=== PATIENT | female | born 1950 | race Caucasian/White ===

== ENCOUNTER 2018-08-17 13:05 | Emergency (ER) | payer OTHER ==
[~2018-08-17] VITALS: Ht 167.6 cm; Wt 80.7 kg
[~2018-08-17 13:05] MED LIST: ACETAMINOPHEN-1 EAC1 PO; ASPIRIN325; CARDIZEM60 MG PO; CLEOCIN HCL150 MG PO; COZAAR 50 MG TA50 M2; GLUCOPHAGE500 MG PO; METOPROLOL PO; MOBIC15 MG; SERTRALINE HCL100 MG PO; ZOCOR40 MG PO
[2018-08-17] MEDS ORDERED: FOLIC ACID1 MG PO (13:37)
[2018-08-17 13:38] LABS: ABSOLUTE BASOPHILS 0.1 thou/uL (0.0-0.2); ABSOLUTE EOSINOPHILS 0.3 thou/uL (0.0-0.7); ABSOLUTE LYMPHOCYTES 2.4 thou/uL (0.8-5.3); ABSOLUTE MONOCYTES 1.1 thou/uL (0.0-1.2); ABSOLUTE NEUTROPHILS 4.3 thou/uL (1.6-8.1); BASOPHILS 1.2 %; EOSINOPHILS 3.3 %; HEMATOCRIT 38.5 % (37.0-47.0); HEMOGLOBIN 12.7 gm/dL (12.0-15.0); LYMPHOCYTES 29.1 %; MCH 28.8 pg (26.0-34.0); MCV 87.2 fL (80.0-100.0); MPV 8.7 fl. (7.2-11.1); NUCLEATED RBCS 0 /100WBC; PLATELET COUNT* 226 thou/uL (150-400); POLYS 52.4 %; RBC 4.42 mil/uL (4.20-5.00); RDW-CV 20.1 % (10.5-14.5); WBC 8.1 thou/uL (4.0-11.0)
[2018-08-17] MEDS ORDERED: METHOTREXATE 22.5 MG PO (13:38)
[2018-08-17] MEDS ORDERED: NEXIUM40 MG PO (13:38)
[2018-08-17] MEDS ORDERED: ADVAIR 500-501 EACH INH (13:38)
[2018-08-17] MEDS ORDERED: CELEBREX 200 M200 M1 PO (13:38)
[2018-08-17 13:47] LABS: ANION GAP 10 mmol/L (7-16); APTT 29.6 Seconds (25.0-31.3); BUN 12 mg/dL (7-18); CALCIUM 8.8 mg/dL (8.5-10.1); CHLORIDE 98 mmol/L (98-107); CO2 30 mmol/L (21-32); CREATININE 0.6 mg/dL (0.6-1.3); GLUCOSE 96 mg/dL (70-99); INR 1.1; POTASSIUM 3.8 mmol/L (3.5-5.1); PROTIME 11.3 Seconds (9.20-11.50); SODIUM 138 mmol/L (136-145)
[2018-08-17 13:58] LABS: PLATELET ESTIMATE ADEQUATE
[2018-08-17 13:59] LABS: ANISOCYTOSIS 1+; MACROCYTES 1+
[2018-08-17 14:02] LABS: ALBUMIN 2.8 g/dL (3.4-5.0); ALKALINE PHOSPHATASE 87 U/L (46-116); NT-PRO BRAIN NAT PEPTIDE 111 pg/mL (<300); SGOT 28 U/L (15-37); SGPT 28 U/L (30-65); TOTAL BILIRUBIN 0.5 mg/dL (<0.1-1.0); TOTAL PROTEIN 7.4 g/dL (6.4-8.2); TROPONIN-I LEVEL <0.06 ng/mL (<0.06)
[2018-08-17 14:26] LABS: URINE BLOOD NEGATIVE (Negative); URINE CLARITY CLEAR; URINE COLOR YELLOW; URINE GLUCOSE-RANDOM NEGATIVE (Negative); URINE KETONES TRACE (Negative); URINE LEUKOCYTES-REFLEX TRACE (Negative); URINE NITRITE-REFLEX NEGATIVE (Negative); URINE PROTEIN 1+ (Negative); URINE SPECIFIC GRAVITY >= 1.030 (1.005-1.030); URINE UROBILINOGEN 0.2 E.U./dl (0.2-1.0)
[2018-08-17 14:28] LABS: ICTOTEST (BILI CONFIRMATORY) Negative (Negative); URINE BILIRUBIN 2+ (Negative)
[2018-08-17 14:34] LABS: SQUAMOUS 4-10 Moderate /LPF (0-3)
[2018-08-17 14:35] LABS: BACTERIA-REFLEX 1-9 Few /HPF (None Seen); CASTS None Seen /LPF (None Seen); CRYSTALS None Seen /LPF (None Seen); MUCUS >6 Heavy strn/LPF (None Seen); URINE RBC 0-2 Rare /HPF (0-2); URINE WBC-REFLEX None Seen /HPF (0-5)
--- NOTE | 2018-08-17 15:51 | EKG ---
[place] [address] ELECTROCARDIOGRAM REPORT Name: POONAM TAN Room: [facility]#: [id number] Admission: 08/17/18 Attend Phys: Discharge: Date of : 54 Report #: [id number] THIS REPORT FOR: //name// [facility] ED Test Date: 2018-08-17 Test Time: 13:14:30 Pat Name: POONAM TAN Department: Room: Gender: F Motor Equipment Sergeant: Valerie CURRY : 1950 Requested By: Kip Chandler Order Number: [id number] : Davis Tuttle Measurements Intervals [place] Rate: 92 P: 63 FL: 159 QRS: 29 QRSD: 92 T: 80 QT: 386 QTc: 478 Interpretive Statements Sinus rhythm Compared to ECG 02/27/2013 18:22:33 No significant changes Electronically Signed On 08-17-2018 15:51:10 LEAD PRODUCER by Davis Tuttle [email or web address] <ELECTRONICALLY SIGNED> By: Davis Tuttle MD, [facility] 08/17/18 1551 1314 1314 Davis Tuttle MD, FACC /EPI
[2018-08-17 17:30] VITALS: BP 143/64
== END 2018-08-17 17:31 | disposition home or self-care (01) ==
LOC: M.ERS 13:05
PROVIDERS: Emergency Medicine
DX: R53.83 Other fatigue (principal); R53.1 Weakness; F41.9 Anxiety disorder, unspecified; E11.9 Type 2 diabetes mellitus without complications; M19.90 Unspecified osteoarthritis, unspecified site; I10 Essential (primary) hypertension; M06.9 Rheumatoid arthritis, unspecified; F17.210 Nicotine dependence, cigarettes, uncomplicated; Z88.1 Allergy status to other antibiotic agents; Z88.0 Allergy status to penicillin; Z88.2 Allergy status to sulfonamides; Z86.2 Personal history of diseases of the blood and blood-forming organs and certain disorders involving the immune mechanism; Z86.718 Personal history of other venous thrombosis and embolism; Z95.5 Presence of coronary angioplasty implant and graft

== ENCOUNTER 2019-04-23 20:22 | Emergency (ER) | payer OTHER ==
[~2019-04-23] VITALS: Ht 167.6 cm; Wt 83.9 kg
[~2019-04-23 20:22] MED LIST changes: +ADVAIR 500-501 EACH INH; +CELEBREX 200 M200 M1 PO; +FOLIC ACID1 MG PO; +METHOTREXATE 22.5 MG PO; +NEXIUM40 MG PO
[2019-04-23] MEDS ORDERED: ONDANSETRON HCL4 M2 PO (22:12)
[2019-04-23] MEDS ORDERED: ZANAFLEX4 MG PO (22:12)
[2019-04-23 22:34] VITALS: BP 136/73
== END 2019-04-23 22:34 | disposition home or self-care (01) ==
LOC: M.ERS 20:22
DX: S01.81XA Laceration without foreign body of other part of head, initial encounter (principal); S16.1XXA Strain of muscle, fascia and tendon at neck level, initial encounter; M19.90 Unspecified osteoarthritis, unspecified site; J44.9 Chronic obstructive pulmonary disease, unspecified; I10 Essential (primary) hypertension; E11.9 Type 2 diabetes mellitus without complications; F41.9 Anxiety disorder, unspecified; F17.210 Nicotine dependence, cigarettes, uncomplicated; Z88.1 Allergy status to other antibiotic agents; Z88.2 Allergy status to sulfonamides; Z88.0 Allergy status to penicillin; Z86.718 Personal history of other venous thrombosis and embolism; Z86.2 Personal history of diseases of the blood and blood-forming organs and certain disorders involving the immune mechanism; W01.0XXA Fall on same level from slipping, tripping and stumbling without subsequent striking against object, initial encounter; Y93.89 Activity, other specified; Y92.89 Other specified places as the place of occurrence of the external cause; Y99.8 Other external cause status

== ENCOUNTER 2019-07-29 10:11 | Emergency (ER) | payer OTHER ==
[~2019-07-29] VITALS: Ht 167.6 cm; Wt 86.2 kg
[~2019-07-29 10:11] MED LIST changes: +ONDANSETRON HCL4 M2 PO; +ZANAFLEX4 MG PO
[2019-07-29 11:24] LABS: ABSOLUTE EOSINOPHILS 0.3 thou/uL (0.0-0.7); ABSOLUTE LYMPHOCYTES 2.2 thou/uL (0.8-5.3); ABSOLUTE MONOCYTES 0.4 thou/uL (0.0-1.2); ABSOLUTE NEUTROPHILS 4.4 thou/uL (1.6-8.1); BASOPHILS 0.2 %; EOSINOPHILS 3.7 %; HEMATOCRIT 32.5 % (37.0-47.0); HEMOGLOBIN 10.6 gm/dL (12.0-15.0); LYMPHOCYTES 30.6 %; MCH 26.5 pg (26.0-34.0); MCHC 32.7 g/dL (28.0-37.0); MCV 81.1 fL (80.0-100.0); MONOCYTES 5.4 %; MPV 8.4 fl. (7.2-11.1); NUCLEATED RBCS 0 /100WBC; PLATELET COUNT* 201 thou/uL (150-400); POLYS 60.1 %; RDW-CV 21.9 % (10.5-14.5); WBC 7.3 thou/uL (4.0-11.0)
[2019-07-29 11:30] LABS: CALCIUM 8.9 mg/dL (8.5-10.1); CREATININE 0.7 mg/dL (0.6-1.3); POTASSIUM 3.4 mmol/L (3.5-5.1)
[2019-07-29 11:35] LABS: ALBUMIN 3.2 g/dL (3.4-5.0); TOTAL BILIRUBIN 0.4 mg/dL (<0.1-1.0); TOTAL PROTEIN 6.7 g/dL (6.4-8.2)
[2019-07-29 11:37] LABS: URINE BILIRUBIN NEGATIVE (Negative); URINE BLOOD NEGATIVE (Negative); URINE CLARITY CLEAR; URINE COLOR YELLOW; URINE GLUCOSE-RANDOM NEGATIVE (Negative); URINE KETONES TRACE (Negative); URINE LEUKOCYTES-REFLEX TRACE (Negative); URINE NITRITE-REFLEX NEGATIVE (Negative); URINE PROTEIN TRACE (Negative); URINE SPECIFIC GRAVITY 1.025 (1.005-1.030); URINE UROBILINOGEN 0.2 E.U./dl (0.2-1.0)
[2019-07-29 11:43] LABS: BACTERIA-REFLEX 1-9 Few /HPF (None Seen); CRYSTALS None Seen /LPF (None Seen); HYALINE CASTS 4-10 Moderate /LPF (None Seen); MUCUS 0-3 Light strn/LPF (None Seen); SQUAMOUS 4-10 Moderate /LPF (0-3); URINE RBC 0-2 Rare /HPF (0-2); URINE WBC-REFLEX 6-15 Few /HPF (0-5)
[2019-07-29 12:16] LABS: PLATELET ESTIMATE ADEQUATE
[2019-07-29 12:18] LABS: HYPOCHROMASIA 1+
[2019-07-29 12:19] LABS: ANISOCYTOSIS 1+; OVALOCYTES 2+; POIKILOCYTOSIS 2+
[2019-07-29] MEDS ORDERED: CIPRO500 MG PO (12:30)
[2019-07-29] MEDS ORDERED: NORCO 5-325 TA1 EAC1 PO ×2 (12:30→12:32)
[2019-07-29] MEDS ORDERED: IBUPROFEN 800800 M1 PO (12:30)
[2019-07-29 12:54] VITALS: BP 139/75
--- NOTE | 2019-07-29 15:25 | EKG ---
[place] [address] ELECTROCARDIOGRAM REPORT Name: POONAM TAN Room: [facility]#: [id number] Admission: 07/29/19 Attend Phys: Discharge: 07/29/19 Date of : 54 Report #: [id number] THIS REPORT FOR: //name// [facility] ED Test Date: 2019-07-29 Test Time: 12:03:40 Pat Name: POONAM TAN Department: Room: Gender: F Traffic Observer: : 1950 Requested By: Tatiana Servin Order Number: [id number] MD: Juan Wilson Measurements Intervals [place] Rate: 81 P: 72 FL: 213 QRS: 35 QRSD: 97 T: 78 QT: 406 QTc: 472 Interpretive Statements Sinus rhythm Borderline prolonged FL interval Abnormal R-wave progression, early transition Minimal ST depression, lateral leads Baseline wander in lead(s) III Compared to ECG 08/17/2018 13:14:30 no change Electronically Signed On 07-29-2019 15:25:30 RISK ADVISOR by Juan Wilson [email or web address] <ELECTRONICALLY SIGNED> By: Juan Wilson MD, [facility] 07/29/19 1525 1203 1203 Juan Wilson MD, [facility] /EPI
== END 2019-07-29 12:54 | disposition home or self-care (01) ==
LOC: M.ERS 10:11
PROVIDERS: Nurse Practitioner Family
DX: N39.0 Urinary tract infection, site not specified (principal); M25.561 Pain in right knee; E11.9 Type 2 diabetes mellitus without complications; J44.9 Chronic obstructive pulmonary disease, unspecified; M19.90 Unspecified osteoarthritis, unspecified site; F41.9 Anxiety disorder, unspecified; F17.210 Nicotine dependence, cigarettes, uncomplicated; Z86.718 Personal history of other venous thrombosis and embolism; Z86.2 Personal history of diseases of the blood and blood-forming organs and certain disorders involving the immune mechanism; Z95.5 Presence of coronary angioplasty implant and graft; Z88.0 Allergy status to penicillin; Z88.1 Allergy status to other antibiotic agents; Z88.2 Allergy status to sulfonamides

== ENCOUNTER 2021-04-20 17:22 | Emergency (ER) | payer OTHER ==
[~2021-04-20] VITALS: Ht 167.6 cm; Wt 79.4 kg
[~2021-04-20 17:22] MED LIST changes: +CIPRO500 MG PO; +COZAAR 50 MG TA50 M1 PO; -COZAAR 50 MG TA50 M2; -GLUCOPHAGE500 MG PO; +IBUPROFEN 800800 M1 PO; +METFORMIN HCL500 MG PO; +NORCO 5-325 TA1 EAC1 PO
[2021-04-20] MEDS ORDERED: IRON18 M1 PO ×2 (17:44)
[2021-04-20 18:20] LABS: HEMATOCRIT 31.4 % (37.0-47.0); HEMOGLOBIN 10.4 gm/dL (12.0-15.0); MCH 29.9 pg (26.0-34.0); MCHC 33.1 g/dL (28.0-37.0); MCV 90.3 fL (80.0-100.0); MPV 9.1 fl. (7.2-11.1); NUCLEATED RBCS 0 /100WBC; PLATELET COUNT* 112 thou/uL (150-400); RBC 3.47 mil/uL (4.20-5.00); RDW-CV 31.5 % (10.5-14.5); WBC 9.5 thou/uL (4.0-11.0)
[2021-04-20 18:27] LABS: CALCIUM 7.9 mg/dL (8.5-10.1); CREATININE 1.5 mg/dL (0.6-1.3); POTASSIUM 3.9 mmol/L (3.5-5.1)
[2021-04-20 18:29] LABS: INR 1.4; PROTIME 14.4 Seconds (9.20-11.50)
[2021-04-20 18:31] LABS: ALBUMIN 1.9 g/dL (3.4-5.0); TOTAL BILIRUBIN 1.1 mg/dL (<0.1-1.0); TOTAL PROTEIN 5.9 g/dL (6.4-8.2)
[2021-04-20 18:43] LABS: ABSOLUTE EOSINOPHILS 2.6 thou/uL (0.0-0.7); ABSOLUTE LYMPHOCYTES 1.5 thou/uL (0.8-5.3); ABSOLUTE MONOCYTES 0.5 thou/uL (0.0-1.2); ABSOLUTE NEUTROPHILS 4.9 thou/uL (1.6-8.1)
[2021-04-20 18:44] LABS: ANISOCYTOSIS 3+; HYPOCHROMASIA 2+; TARGET CELLS Occasional
[2021-04-20 18:45] LABS: MICROCYTES Occasional; OVALOCYTES Occasional
[2021-04-20 18:47] LABS: PLATELET ESTIMATE ADEQUATE; POIKILOCYTOSIS 1+
[2021-04-20 19:26] LABS: ESR (SEDRATE) 25 mm/hr (0-30)
[2021-04-20] MEDS ORDERED: PREDNISONE 10 M10 MG PO ×2 (20:00)
[2021-04-20] MEDS ORDERED: CEPHALEXIN500 MG PO ×2 (20:00)
[2021-04-20 20:13] VITALS: BP 131/70
== END 2021-04-20 20:13 | disposition home or self-care (01) ==
LOC: M.ERS 17:22
PROVIDERS: Nurse Practitioner Family
DX: I77.6 Arteritis, unspecified (principal); M19.90 Unspecified osteoarthritis, unspecified site; M06.9 Rheumatoid arthritis, unspecified; J44.9 Chronic obstructive pulmonary disease, unspecified; I10 Essential (primary) hypertension; E11.9 Type 2 diabetes mellitus without complications; F17.210 Nicotine dependence, cigarettes, uncomplicated; Z79.899 Other long term (current) drug therapy; Z86.718 Personal history of other venous thrombosis and embolism; Z88.0 Allergy status to penicillin; Z88.1 Allergy status to other antibiotic agents; Z88.2 Allergy status to sulfonamides

== ENCOUNTER 2021-04-21 03:13 | Observation (INO) | payer OTHER ==
[~2021-04-21] VITALS: Ht 167.6 cm; Wt 78.9 kg
[~2021-04-21 03:13] MED LIST changes: +CEPHALEXIN500 MG PO; +IRON18 M1 PO; +PREDNISONE 10 M10 MG PO
[2021-04-21 03:22] VITALS: BP 142/75
[2021-04-21 06:48] LABS: URINE BILIRUBIN NEGATIVE (Negative); URINE BLOOD TRACE (Negative); URINE CLARITY CLEAR; URINE COLOR YELLOW; URINE GLUCOSE-RANDOM NEGATIVE (Negative); URINE KETONES NEGATIVE (Negative); URINE LEUKOCYTES-REFLEX NEGATIVE (Negative); URINE NITRITE-REFLEX NEGATIVE (Negative); URINE PROTEIN NEGATIVE (Negative); URINE UROBILINOGEN 0.2 E.U./dl (0.2-1.0)
[2021-04-21 09:06] LABS: CALCIUM 8.1 mg/dL (8.5-10.1); CREATININE 1.5 mg/dL (0.6-1.3); POTASSIUM 4.3 mmol/L (3.5-5.1); TOTAL BILIRUBIN 0.9 mg/dL (<0.1-1.0); TOTAL PROTEIN 6.2 g/dL (6.4-8.2)
[2021-04-21 09:11] VITALS: BP 135/72
[2021-04-21 11:08] VITALS: BP 135/72
[2021-04-21 11:09] VITALS: BP 125/71
[2021-04-21 12:00] VITALS: BP 125/71
--- NOTE | 2021-04-21 12:16 | EKG ---
[place] [address] ELECTROCARDIOGRAM REPORT Name: POONAM TAN Room: [address] M.R.#: [id number] Admission: 04/21/21 Attend Phys: Rj Brooks, Discharge: Date of : 54 Date of Service: 04/21/21 0556 Report #: [id number] THIS REPORT FOR: //name// [facility] ED Test Date: 2021-04-21 Test Time: 05:56:12 Pat Name: POONAM TAN Department: Room: [facility] Gender: F In Flight Refueling Manager: KELVIN : 1950 Requested By: Maya Carbajal Order Number: [id number] MD: Juan Wilson Measurements Intervals [place] Rate: 97 P: 148 NE: 184 QRS: 12 QRSD: 96 T: 145 QT: 404 QTc: 513 Interpretive Statements Sinus or ectopic atrial rhythm artifact noted Low voltage, extremity leads Abnormal T, consider ischemia, lateral leads Prolonged QT interval Compared to ECG 07/29/2019 12:03:40 Ectopic atrial rhythm now present Low QRS voltage now present T-wave abnormality now present Prolonged QT interval now present Electronically Signed On 04-21-2021 12:15:49 CDT by Juan Wilson [email or web address] <ELECTRONICALLY SIGNED> By: Juan Wilson MD, [facility] 04/21/21 1215 0556 0556 Juan Wilson MD, [facility] /EPI
--- NOTE | 2021-04-21 12:17 | EKG ---
[place] [address] ELECTROCARDIOGRAM REPORT Name: POONAM TAN [address] [id number] Admission: 04/21/21 Attend Phys: Rj Brooks, Discharge: Date of : 54 Date of Service: 04/21/21 0946 Report #: [id number] THIS REPORT FOR: //name// [facility] Test Date: 2021-04-21 Test Time: 09:46:57 Pat Name: POONAM TAN Department: Room: [facility] Gender: F Shoe Stainer: SHANA : 1950 Requested By: Richard Garcia Order Number: [id number] Jose Luis MD: Juan Wilson Measurements Intervals Lane Rate: 95 P: 72 IN: 180 QRS: 27 QRSD: 99 T: 69 QT: 418 QTc: 526 Interpretive Statements Sinus rhythm Abnormal R-wave progression, early transition Prolonged QT interval Compared to ECG 04/21/2021 05:56:12 Ectopic atrial rhythm no longer present Electronically Signed On 04-21-2021 12:17:08 CDT by Juan Wilson [email or web address] <ELECTRONICALLY SIGNED> By: Juan Wilson MD, [facility] 04/21/21 1217 Juan Wilson MD, [facility] /EPI
--- NOTE | 2021-04-21 14:58 | NUR ---
PT TRANSFERRED TO UNIT AT APPROX NOON FROM THE ER. PT IS A&OX4. PT WITH MULTIPLE FACIAL BRUISES FROM ACCIDENTAL FALL. ASSESSMENT COMPLETED. CHRONIC VASCULITIS NOTED TO BILAT LOWER EXTREMITIES. R MIDDLE TOE SCABBED PT STATES HER SON WHO IS A NURSE HAS BEEN MONITORING AND TREATING IT. MEDICATIONS ADMINISTERED ORDERED. SAFETY MEASURES IN PLACE AND PT VERBALIZES IMPORTANCE OF CALLING STAFF FOR ASSISTANCE TO PROMOTE SAFETY. PT DENIES ANY PAIN AND/OR DISCOMFORT.
--- NOTE | 2021-04-21 15:25 | NUR ---
Pt is A&O. Resides at home with her , son and DIL. assists with ADLs. Son and DIL complete IADLs. Pt uses a walker for mobility, Pt also has a cane. No hx of HH or SNF. Therapies to see, if cleared, plan home today. Pt declines HH and SNF. CM updated
[2021-04-21 16:15] VITALS: BP 125/71
--- NOTE | 2021-04-21 16:21 | NUR ---
PT WITH NEW ORDER TO DISCHARGE PT TO HOME. SON HERE TO TRANSPORT PT TO HOME. DISCHARGE ORDERS REVIEWED WITH PT WHO VERBALIZED UNDERSTANDING. HEART MONITOR REMOVED AND IV DC'D. ALLBELONGINGS WITH PT. PT TRANSPORTED BY NURSING STAFF, VIA WHEELCHAIR. DISCHARGED WITH SON VIA CAR AT APPROX 1630.
== END 2021-04-21 16:21 | disposition home or self-care (01) ==
LOC: M.ERS 03:13 → M.TBA-ER 05:59 → M.2W 10:27
PROVIDERS: Internal Medicine; Personal Emergency Response Attendant; ADMIT Internal Medicine; ATTEND Internal Medicine
DX: S02.2XXA Fracture of nasal bones, initial encounter for closed fracture (principal); S00.83XA Contusion of other part of head, initial encounter; Z20.822 Contact with and (suspected) exposure to COVID-19; E11.9 Type 2 diabetes mellitus without complications; F41.9 Anxiety disorder, unspecified; M19.90 Unspecified osteoarthritis, unspecified site; J44.9 Chronic obstructive pulmonary disease, unspecified; I10 Essential (primary) hypertension; M06.9 Rheumatoid arthritis, unspecified; F17.210 Nicotine dependence, cigarettes, uncomplicated; Z79.82 Long term (current) use of aspirin; Z79.84 Long term (current) use of oral hypoglycemic drugs; Z79.899 Other long term (current) drug therapy; W19.XXXA Unspecified fall, initial encounter; Y92.89 Other specified places as the place of occurrence of the external cause; Y93.89 Activity, other specified

== ENCOUNTER 2021-05-27 09:53 | Observation (INO) | payer OTHER ==
[~2021-05-27] VITALS: Ht 167.6 cm; Wt 108.9 kg
[2021-05-27 09:57] VITALS: BP 136/72
[2021-05-27 12:38] LABS: ABSOLUTE EOSINOPHILS 0.1 thou/uL (0.0-0.7); ABSOLUTE LYMPHOCYTES 1.6 thou/uL (0.8-5.3); ABSOLUTE MONOCYTES 0.9 thou/uL (0.0-1.2); ABSOLUTE NEUTROPHILS 4.3 thou/uL (1.6-8.1); BASOPHILS 0.4 %; EOSINOPHILS 1.8 %; HEMATOCRIT 32.2 % (37.0-47.0); HEMOGLOBIN 10.6 gm/dL (12.0-15.0); LYMPHOCYTES 23.4 %; MCH 32.7 pg (26.0-34.0); MCHC 32.9 g/dL (28.0-37.0); MCV 99.4 fL (80.0-100.0); MONOCYTES 12.6 %; MPV 8.2 fl. (7.2-11.1); NUCLEATED RBCS 0 /100WBC; PLATELET COUNT* 110 thou/uL (150-400); POLYS 61.8 %; RBC 3.24 mil/uL (4.20-5.00); RDW-CV 18.4 % (10.5-14.5)
[2021-05-27 12:47] LABS: CALCIUM 7.9 mg/dL (8.5-10.1); CREATININE 0.7 mg/dL (0.6-1.3); POTASSIUM 3.7 mmol/L (3.5-5.1)
[2021-05-27 12:51] LABS: TOTAL BILIRUBIN 1.3 mg/dL (<0.1-1.0)
[2021-05-27 14:09] LABS: URINE BILIRUBIN NEGATIVE (Negative); URINE BLOOD NEGATIVE (Negative); URINE CLARITY CLEAR; URINE COLOR YELLOW; URINE GLUCOSE-RANDOM NEGATIVE (Negative); URINE KETONES NEGATIVE (Negative); URINE LEUKOCYTES-REFLEX TRACE (Negative); URINE NITRITE-REFLEX NEGATIVE (Negative); URINE PROTEIN NEGATIVE (Negative); URINE SPECIFIC GRAVITY 1.015 (1.005-1.030); URINE UROBILINOGEN 0.2 E.U./dl (0.2-1.0)
--- NOTE | 2021-05-27 14:26 | EKG ---
[place] [address] ELECTROCARDIOGRAM REPORT Name: POONAM TAN Room: [facility]#: [id number] Admission: 05/27/21 Attend Phys: Discharge: Date of : 54 Date of Service: 05/27/21 1224 Report #: [id number] THIS REPORT FOR: //name// [facility] ED Test Date: 2021-05-27 Test Time: 12:24:51 Pat Name: POONAM TAN Department: Room: Gender: F Master Dyer: : 1950 Requested By: Ana Willoughby Order Number: [id number] MD: Juan Wilson Measurements Intervals [place] Rate: 105 P: 45 [place]: 114 QRS: 30 QRSD: 96 T: 67 QT: 389 QTc: 515 Interpretive Statements Sinus tachycardia Multiple ventricular premature complexes artifact noted Prolonged QT interval Compared to ECG 04/21/2021 09:46:57 Ventricular premature complex(es) now present Sinus rhythm no longer present Electronically Signed On 05-27-2021 14:26:00 CDT by Juan Wilson [email or web address] <ELECTRONICALLY SIGNED> By: Juan Wilson MD, FACC 05/27/21 1426 1224 1224 Juan Wilson MD, FAC /EPI
[2021-05-27 20:02] VITALS: BP 134/73
[2021-05-27 21:30] VITALS: BP 130/61
[2021-05-28 04:00] VITALS: BP 130/80
[2021-05-28 08:24] LABS: HEMOGLOBIN 10.6 gm/dL (12.0-15.0); MCH 32.7 pg (26.0-34.0); MCHC 33.1 g/dL (28.0-37.0); MPV 8.5 fl. (7.2-11.1); RBC 3.23 mil/uL (4.20-5.00); RDW-CV 18.5 % (10.5-14.5); WBC 6.9 thou/uL (4.0-11.0)
[2021-05-28 08:39] LABS: CALCIUM 8.3 mg/dL (8.5-10.1); CREATININE 0.9 mg/dL (0.6-1.3)
[2021-05-28 08:40] VITALS: BP 115/68
--- NOTE | 2021-05-28 14:55 | NUR ---
CM ASSESSMENT: PT A&O. PT RESIDES AT HOME WITH SPOUSE, SON AND DIL. PT'S SPOUSE ASSIST WITH CARES. PT USES A WALKER FOR MOBILITY. PT ALSO OWN A CANE. PT HAS 0 HX OF HH OR SNF. NO CM D/C PLANNING NEEDS ANTICIPATED AT THIS TIME. CM WILL REMAIN AVAILABLE TO ASSIST AND FOLLOW NEEDED.
--- NOTE | 2021-05-28 14:59 | 2DMMODE ---
[place] [address] 2 D/M-MODE ECHOCARDIOGRAM Name: POONAM TAN Room: [address] Isabel Guevara#: [id number] Admission: 05/27/21 Attend Phys: Richard Garcia Discharge: Date of : 54 Date of Service: 05/28/21 1458 Report #: [id number] THIS REPORT FOR: cc: FAM - No family physician/PCP FAM - No family physician/PCP Juan Wilson MD [facility] ~ APPROVED REPORT Study performed: 05/28/2021 13:54:44 EXAM: Comprehensive 2D, Doppler, and color-flow Echocardiogram Patient Location: Bedside BSA: 2.13 HR: 98 bpm BP: 115/68 mmHg Other Information Study Quality: Adequate Indications Congestive Heart Failure 2D Dimensions IVSd: 12.26 (7-11mm) LVOT Diam: 18.87 (18-24mm) LVDd: 38.08 mm PWd: 9.43 (7-11mm) Ascending Ao: 28.08 (22-36mm) LVDs: 25.83 (25-40mm) Aortic Root: 28.65 mm Volumes Left Atrial Volume (Systole) LA ESV Index: 16.50 mL/m2 Aortic Valve AoV Peak Tod.: 2.01 m/s AO Peak Gr.: 16.15 mmHg LVOT Max P.47 mmHg AO Mean Gr.: 8.89 mmHg LVOT Mean P.32 mmHg LVOT Max V: 1.06 m/s AO V2 VTI: 30.12 cm LVOT Mean V: 0.70 m/s GLENN (VTI): 1.84 cm2 LVOT V1 VTI: 19.84 cm Mitral Valve E/A Ratio: 0.83 [place] [address] 2 D/M-MODE ECHOCARDIOGRAM Name: POONAM TAN Room: [address] [place]#: [id number] Admission: 05/27/21 Attend Phys: Richard Garcia Discharge: Date of : 54 Date of Service: 05/28/21 1458 Report #: [id number] MV Decel. Time: 269.35 ms MV E Max Tod.: 0.72 m/s MV PHT: 78.11 ms MVA (PHT): 2.82 cm2 TDI E/Lateral E': 9.00 E/Medial E': 10.29 Medial E' Tod.: 0.07 m/s Lateral E' Tod.: 0.08 m/s Pulmonary Valve PV Peak Tod.: 1.22 m/s PV Peak Gr.: 6.00 mmHg Tricuspid Valve RAP Estimate: 5.00 mmHg TR Peak Gr.: 26.18 mmHg RVSP: 31.18 mmHg PA Pressure: 31.18 mmHg Left Ventricle The left ventricle is normal size. There is normal LV segmental wall motion. There is normal left ventricular wall thickness. Left ventricular systolic function is normal. The left ventricular ejection fraction is within the normal range. LVEF is 60-65%. Grade I - abnormal relaxation pattern. Right Ventricle The right ventricle is normal size. The right ventricular systolic function is normal. Atria The left atrium size is normal. Interatrial septum not well visualized. The right atrium size is normal. Aortic Valve The Aortic valve is sclerotic. No aortic regurgitation is present. Mild aortic stenosis. Mitral Valve The mitral valve is normal in structure. Trace mitral regurgitation. No evidence of mitral valve stenosis. Tricuspid Valve The tricuspid valve is normal in structure. Trace tricuspid regurgitation[place] [address] 2 D/M-MODE ECHOCARDIOGRAM Name: POONAM TAN [address]: [address]#: [id number] Admission: 05/27/21 Attend Phys: Richard Garcia Discharge: Date of : 54 Date of Service: 05/28/21 1458 Report #: [id number] Pulmonic valve is not well visualized. There is no pulmonic valvular regurgitation. Great Vessels The aortic root is normal in size. IVC is not visualized. Pericardium There is no pericardial effusion. <Conclusion> LVEF is 60-65%. The Aortic valve is sclerotic. <ELECTRONICALLY SIGNED> By: Juan Wilson MD, FACC 05/28/21 1458 1458 145 Juan Wilson MD, FACC /INF
[2021-05-28 16:03] VITALS: BP 121/71
--- NOTE | 2021-05-28 16:46 | NUR ---
WOUND NURSE: PATIENT SEEN TO ADDRESS HEALING RUPTURED BLISTER ON THE LEFT MEDIAL MALLEOLUS MEASURING 4.5 X 5.5 X 0.1 CM. CONTAINS PINK EPITHELIAL TISSUE INTERSPERSED WITH RED, NONGRANULATING TISSUE, AND THIN LAYER OF YELLOWISH ESCHAR. CLEANSED WITH SOAP AND WATER, RINSED, THEN PATTED DRY. APPLIED SKIN PREP TO INTACT PERIWOUND TISSUE, THEN APPLIED THERAHONEY TO WOUND BED, THEN COVERED WITH OPTIFOAM GENTLE BORDERED FOAM DRESSING AND PLACED SINGLE LAYER TUBIGRIPS ON BLE TOES TO KNEE. THIS WAS TOLERATED WELL BY THE PATIENT. SCHEDULED HER TO BE SEEN IN [facility] HERE AT [facility]. PATIENT PROVIDED APPT CARD. INSTRUCTED ON MEASURES TO PROMOTE HEALING AND PREVENT COMPLICATIONS.
--- NOTE | 2021-05-28 19:32 | NUR ---
PATIENT RESTING IN BED. PATIENT IS UP WITH ASSIST OF ONE WITH GAIT BELT AND WALKER. PATIENT HAS HAD COMPLAINT SOF BACK PAIN AND LEFT FOOT PAIN, TREATED ADEQUATELY WITH MEDICATION. PATIENT SEEN BY WOUND CARE NURSE THIS AFTERNOON. PATIENT DENIES ANY NEEDS AT THIS TIME. CALL LIGHT WITHIN REACH. WILL CONTINUE TO MONITOR.
[2021-05-28 20:00] VITALS: BP 130/77
[2021-05-29] VITALS: BP 116/70
[2021-05-29 03:06] LABS: COMPLEMENT-C4 13 mg/dL (12-38)
[2021-05-29 07:47] VITALS: BP 104/54
[2021-05-29] MEDS ORDERED: PROTONIX40 M2 PO (08:00)
[2021-05-29] MEDS ORDERED: DOXYCYCLINE 10100 MG PO (08:00)
[2021-05-29] MEDS ORDERED: MEDROLDOSEPACK PO (08:00)
[2021-05-29 08:24] VITALS: BP 104/54
[2021-05-29 12:37] VITALS: BP 104/54
[2021-05-29 12:45] VITALS: BP 104/54
[2021-05-29] MEDS ORDERED: LASIX 40 MG TAB40 MG PO (13:01)
[2021-05-29 13:02] VITALS: BP 104/54
--- NOTE | 2021-05-29 13:07 | NUR ---
spoke with son and patient. son states she has a commode, hospital bed, enabler bars (grab bars) and nebulizer at home. he is an rn and does her wound care and helps her as needed. he lives 1 [address] away. he states she will not likely participate with home health, and patient agrees. he has contacts with home health and will ask her pcp for a referral if their needs change. denied any other needs. updated nurse.
--- NOTE | 2021-05-29 13:48 | NUR ---
PT DISCHARGED HOME. SON FIORDALIZA HERE TO MULTIGRAPHER PT. SON REPORTS THAT HE WILL PROVIDE HER WOUND CARE AND SRINIVAS, ENROBING MACHINE OPERATOR FARZANA WITH THEM R.T HH. SEE NOTE. IV ACCESS REMOVED. PT TOOK ALL BELONGINGS.
== END 2021-05-29 13:50 | disposition home or self-care (01) ==
LOC: M.ERS 09:53 → M.TBA-ER 15:23 → M.3W 15:23
PROVIDERS: Family Medicine; Internal Medicine; Physician Assistant; ADMIT Internal Medicine; ATTEND Internal Medicine
DX: R60.9 Edema, unspecified (principal); L03.116 Cellulitis of left lower limb; L03.115 Cellulitis of right lower limb; Z20.822 Contact with and (suspected) exposure to COVID-19; J44.9 Chronic obstructive pulmonary disease, unspecified; R53.1 Weakness; I10 Essential (primary) hypertension; M06.9 Rheumatoid arthritis, unspecified; E11.9 Type 2 diabetes mellitus without complications; E78.5 Hyperlipidemia, unspecified; F41.9 Anxiety disorder, unspecified; D50.9 Iron deficiency anemia, unspecified; E66.01 Morbid (severe) obesity due to excess calories; B36.9 Superficial mycosis, unspecified; Z79.84 Long term (current) use of oral hypoglycemic drugs; Z79.899 Other long term (current) drug therapy; Z68.38 Body mass index [BMI] 38.0-38.9, adult

== ENCOUNTER 2021-07-03 10:53 | Inpatient (IN) | payer OTHER ==
[~2021-07-03] VITALS: Ht 167.6 cm; Wt 100.7 kg
--- NOTE | ~2021-07-03 | CON ---
[address] [address] CONSULTATION Name: POONAM TAN Room: [address] IN .R.#: [id number] Admission: 07/03/21 Attend Phys: Avelina Zhu Discharge: Date of : 54 Report #: [id number] THIS REPORT FOR: cc: HERLINDA - No family physician/PCP HERLINDA - No family physician/PCP Farhad Frank MD ~ DATE OF CONSULTATION: 07/08/2021 REQUESTING PHYSICIAN: ____. REASON FOR CONSULTATION: Thrombocytopenia. HISTORY OF PRESENT ILLNESS: The patient is a 70-year-old woman who has a history of severe COPD. She was admitted to the hospital with altered mental status. She developed respiratory failure. She is intubated. She is diagnosed with Pseudomonas pneumonia. I am consulted for coagulopathy and thrombocytopenia. She has been having mild blood streaks from the respiratory secretions. She has bruising relatively mild; however, she does not have obvious profuse bleeding. PAST MEDICAL HISTORY: Significant for COPD, history of UTI, history of bilateral lower extremity cellulitis plus colitis. SOCIAL HISTORY: Lives with her . He is a smoker. FAMILY HISTORY: Unable to obtain. REVIEW OF SYSTEMS: Unable to obtain. PHYSICAL EXAMINATION: VITAL SIGNS: Blood pressure 121/69, heart rate is 78, temperature 98.0. GENERAL: The patient is intubated and sedated. NECK: Supple. There is no supraclavicular or axillary lymphadenopathy. HEART: Normal S1, S2. LUNGS: Coarse. ABDOMEN: Soft. SKIN: Reveals mild bruising. LABORATORY DATA: White count 20.6, hemoglobin 7.5, platelets 34. PT 18.4, INR 1.8, PTT 45.4. D-dimer is 8.1, fibrinogen 127. ASSESSMENT AND PLAN: 1. 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 2. Coagulopathy secondary to disseminated intravascular coagulation. The patient was given vitamin K. Continue vitamin K 5 mg sub[place] [address] CONSULTATION Name: POONAM TAN Room: [address] IN [facility]#: [id number] Admission: 07/03/21 Attend Phys: Avelina Zhu Discharge: Date of : 54 Report #: [id number] less than 200, plan to give her 3 units of cryoprecipitate. We will continue to treat underlying disease. I talked with Dr. ____ CT of abdomen and pelvis to make sure she does not have any other source of infection. We will continue blood product support. Thank you very much for allowing me to participate in the care of this patient. By: [id number] Frank MD /nt
[~2021-07-03 10:53] MED LIST changes: +DOXYCYCLINE 10100 MG PO; +LASIX 40 MG TAB40 MG PO; +MEDROLDOSEPACK PO; +PROTONIX40 M2 PO
[2021-07-03 11:00] VITALS: BP 134/65
[2021-07-03 11:28] LABS: INFLUENZA A ANTIGEN Negative (Negative); INFLUENZA B ANTIGEN Negative (Negative)
[2021-07-03 11:42] LABS: BE 0.4 mmol/L (-2 to +3); PCO2 44.6 mmHg (35.0-45.0)
[2021-07-03 11:47] LABS: PO2 125.3 mmHg (75.0-100.0)
[2021-07-03 11:47] LABS: ABSOLUTE BASOPHILS 0.1 thou/uL (0.0-0.2); ABSOLUTE EOSINOPHILS 0.1 thou/uL (0.0-0.7); ABSOLUTE LYMPHOCYTES 1.2 thou/uL (0.8-5.3); ABSOLUTE MONOCYTES 0.8 thou/uL (0.0-1.2); ABSOLUTE NEUTROPHILS 11.9 thou/uL (1.6-8.1); BASOPHILS 0.6 %; EOSINOPHILS 0.6 %; HEMATOCRIT 35.7 % (37.0-47.0); HEMOGLOBIN 11.7 gm/dL (12.0-15.0); LYMPHOCYTES 8.3 %; MCH 33.3 pg (26.0-34.0); MCHC 32.8 g/dL (28.0-37.0); MCV 101.5 fL (80.0-100.0); MONOCYTES 5.6 %; MPV 8.9 fl. (7.2-11.1); NUCLEATED RBCS 0 /100WBC; PLATELET COUNT* 117 thou/uL (150-400); POLYS 84.9 %; RBC 3.52 mil/uL (4.20-5.00); RDW-CV 16.1 % (10.5-14.5); WBC 14.1 thou/uL (4.0-11.0)
[2021-07-03 12:06] LABS: ALBUMIN 1.7 g/dL (3.4-5.0); CALCIUM 8.4 mg/dL (8.5-10.1); CREATININE 2.4 mg/dL (0.6-1.3); POTASSIUM 4.2 mmol/L (3.5-5.1); TOTAL BILIRUBIN 1.4 mg/dL (<0.1-1.0); TOTAL PROTEIN 5.7 g/dL (6.4-8.2)
--- NOTE | 2021-07-03 12:33 | EKG ---
[place] [address] ELECTROCARDIOGRAM REPORT Name: POONAM TAN Room: [place] [address] ADM IN .R.#: [id number] Admission: 07/03/21 Attend Phys: Richard Garcia Discharge: Date of : 54 Date of Service: 07/03/21 1057 Report #: [id number] THIS REPORT FOR: //name// [facility] ED Test Date: 2021-07-03 Test Time: 10:57:17 Pat Name: POONAM TAN Department: Room: [facility] Gender: F Hand Hardener: : 1950 Requested By: Phu Lobo Order Number: [id number] MD: Juan Wilson Measurements Intervals [place] Rate: 116 P: 31 AR: 144 QRS: 4 QRSD: 81 T: 120 QT: 359 QTc: 499 Interpretive Statements Sinus tachycardia artifact noted Probable left atrial enlargement Borderline abnrm T, anterolateral leads Borderline prolonged QT interval Compared to ECG 05/27/2021 12:24:51 Ventricular premature complex(es) no longer present Electronically Signed On 07-03-2021 12:33:02 BED SETTER by Juan Wilson [email or web address] <ELECTRONICALLY SIGNED> By: Juan Wilson MD, FACC 07/03/21 1233 1057 1057 Juan Wilson MD, FACC /EPI
[2021-07-03 15:51] VITALS: BP 152/74
[2021-07-03 20:42] VITALS: BP 121/73
[2021-07-03 22:00] VITALS: BP 127/85
[2021-07-04] VITALS (7 sets, daily range): BP systolic 108–137; BP diastolic 62–94
[2021-07-04 09:41] LABS: ABSOLUTE LYMPHOCYTES 1.5 thou/uL (0.8-5.3); BASOPHILS 0.3 %; HEMOGLOBIN 10.5 gm/dL (12.0-15.0); RBC 3.14 mil/uL (4.20-5.00)
[2021-07-04 09:43] LABS: ABSOLUTE EOSINOPHILS 0.1 thou/uL (0.0-0.7); ABSOLUTE MONOCYTES 0.9 thou/uL (0.0-1.2); ABSOLUTE NEUTROPHILS 13.2 thou/uL (1.6-8.1); EOSINOPHILS 0.5 %; HEMATOCRIT 31.6 % (37.0-47.0); LYMPHOCYTES 9.6 %; MCH 33.3 pg (26.0-34.0); MCHC 33.1 g/dL (28.0-37.0); MCV 100.5 fL (80.0-100.0); MPV 8.6 fl. (7.2-11.1); NUCLEATED RBCS 0 /100WBC; PLATELET COUNT* 123 thou/uL (150-400); POLYS 83.6 %; RDW-CV 16.2 % (10.5-14.5); WBC 15.8 thou/uL (4.0-11.0)
[2021-07-04 09:46] LABS: CREATININE 2.5 mg/dL (0.6-1.3); POTASSIUM 4.1 mmol/L (3.5-5.1)
--- NOTE | 2021-07-04 18:35 | NUR ---
ASSUMED PT CARE AT 0730. PT IS LETHARGIC AND UNABLE TO TAKE PO MEDS. DR ESPINOZA INFORMED OF PT'S STATUS. ASSESSMENT COMPLETED AND PT NOTED TO HAVE AN OPEN SORE ON HER L INNER HEEL WITH DRY BLOODY DRESSING. DRESSING CHANGED. DON HERE THIS AFTERNOON AND STATED THAT THE AREA HE HAS BEEN DRESSING AT HOME AND IT WAS DUE TO BE CHANGED TODAY. UPDATED DR. ESPINOZA THIS AFTERNOON OF PT'S STATUS AND NEW ORDER FOR COVID PCR TO BE SENT TO [facility] FOR EVAL. SAFETY MEASURES IN PLACE, PT TURNED Q2HR AND REPOSITIONED FOR COMFORT.
--- NOTE | 2021-07-04 19:16 | NUR ---
PATIENT BROUGHT TO ROOM FROM TELEMETRY FLOOR. PATIENT IS ON HOSPITAL BED, AND PLACED BACK ON BIPAP MACHINE. PATIENT HAS BEEN RESTLESS TODAY. BROUGHT TO COVID UNIT DUE TO CXR LOOKING BAD. REPORT WAS GIVEN TO STEVEN MORA. PATIENT SR ON PROTOTYPE TECHNICIAN. IV SITGES X2 PATENT. NPO FOR NOW. VICKERS CATHETER PATENT. PATIENT WILL REMAIN ON BNEDREST, AND WILL CONTINUE TO SUPPORT RESPIRATORY STATUS.
[2021-07-05] VITALS (25 sets, daily range): BP systolic 85–148; BP diastolic 46–82
[2021-07-05 04:06] LABS: HEMATOCRIT 30.8 % (37.0-47.0); HEMOGLOBIN 10.2 gm/dL (12.0-15.0); MCH 33.5 pg (26.0-34.0); MCHC 33.1 g/dL (28.0-37.0); MCV 101.3 fL (80.0-100.0); MPV 8.3 fl. (7.2-11.1); NUCLEATED RBCS 0 /100WBC; PLATELET COUNT* 139 thou/uL (150-400); RBC 3.04 mil/uL (4.20-5.00); RDW-CV 16.9 % (10.5-14.5); WBC 16.6 thou/uL (4.0-11.0)
[2021-07-05 04:40] LABS: CALCIUM 7.8 mg/dL (8.5-10.1); CREATININE 2.6 mg/dL (0.6-1.3); POTASSIUM 4.5 mmol/L (3.5-5.1)
[2021-07-05 05:58] LABS: ABSOLUTE MONOCYTES 0.7 thou/uL (0.0-1.2); ABSOLUTE NEUTROPHILS 14.9 thou/uL (1.6-8.1); PLATELET ESTIMATE DECREASED
[2021-07-05 06:01] LABS: TOXIC GRANULATION Occasional
--- NOTE | 2021-07-05 07:57 | NUR ---
ASSUMED CARE OF PT AFTER REPORT AT 1930. PT RESTLESS, AMS. UNABLE TO ANSWER QUESTIONS. VSS. PHYSICAL ASSESSMENT COMPLETED AND CHARTED. PT ON CONTINUOUS BIPAP 80%. PT TRACING ST ON TELE. PT WITH VICKERS TO DEPENDENT DRAIN WITH DECREASED URIN OUTPUT. UNABLE TO TAKE PILLS. TRYING TO REMOVE BIPAP. FALL PRECAUTIONS IN PLACE. CALL LIGHT WITHIN REACH.
--- NOTE | 2021-07-05 11:55 | NUR ---
CM ATTMEPTED TO CONTACT PT AND PT'S SPOUSE (CUSTOMER SERVICE RECEPTIONIST). A BOILER HOUSE OPERATOR WILL NEED TO F/U TO COMPLETE ASSESSEMT AT A LATER DATE.
[2021-07-05 13:51] LABS: ABSOLUTE EOSINOPHILS 0.1 thou/uL (0.0-0.7); ABSOLUTE LYMPHOCYTES 1.9 thou/uL (0.8-5.3); ABSOLUTE MONOCYTES 1.2 thou/uL (0.0-1.2); ABSOLUTE NEUTROPHILS 15.1 thou/uL (1.6-8.1); BASOPHILS 0.1 %; EOSINOPHILS 0.5 %; HEMATOCRIT 30.3 % (37.0-47.0); HEMOGLOBIN 9.7 gm/dL (12.0-15.0); LYMPHOCYTES 10.5 %; MCH 33.3 pg (26.0-34.0); MCHC 31.9 g/dL (28.0-37.0); MCV 104.4 fL (80.0-100.0); MONOCYTES 6.5 %; MPV 8.3 fl. (7.2-11.1); NUCLEATED RBCS 0 /100WBC; PLATELET COUNT* 137 thou/uL (150-400); POLYS 82.4 %; RDW-CV 16.9 % (10.5-14.5); WBC 18.3 thou/uL (4.0-11.0)
[2021-07-05 14:09] LABS: APTT 46.7 Seconds (25.0-31.3); INR 3.6; PROTIME 35.7 Seconds (9.20-11.50)
--- NOTE | 2021-07-05 14:09 | NUR ---
Pt had DL PICC placed this am to [facility]; received verbal consent from Rory, shauna, prior to placement. Son was updated briefly this morning regarding pt status. This afternoon, Dr. Jiménez ordered pt to be moved to ICU for intubation. Pt continues to be lethargic, noncommunicative, and restless. BG dropped to <30 before noon, and 48 just prior to transfer to ICU. D50 given twice today, and another dose about to be given per TIGHT BARREL INSPECTOR Attempted to reach son at same number [phone]) to update; left message. Pt transferred to ICU just before 1400.
[2021-07-05 14:19] LABS: CALCIUM 7.7 mg/dL (8.5-10.1); CREATININE 2.8 mg/dL (0.6-1.3); POTASSIUM 4.6 mmol/L (3.5-5.1)
--- NOTE | 2021-07-05 14:59 | NUR ---
PT TRANSFERRED TO ROOM 2 IN THE ICU. PT INTUBATED BY ANESTHESIA AND PLACED ON MECHANICAL VENTIALTION. PT IS FEBRILE AND ICE BAGS PLACED UNDER ARMPITS. WILL CONTINUE TO ASSESS.
[2021-07-05 15:11] LABS: BE -2.4 mmol/L (-2 to +3); PCO2 47.3 mmHg (35.0-45.0); PO2 110.6 mmHg (75.0-100.0); pH 7.319 (7.340-7.450)
[2021-07-05 15:32] LABS: URINE BLOOD 3+ (Negative); URINE CLARITY TURBID; URINE COLOR DARK YELLOW; URINE GLUCOSE-RANDOM NEGATIVE (Negative); URINE KETONES NEGATIVE (Negative); URINE LEUKOCYTES-REFLEX 1+ (Negative); URINE PROTEIN 2+ (Negative); URINE SPECIFIC GRAVITY >= 1.030 (1.005-1.030); URINE UROBILINOGEN 0.2 E.U./dl (0.2-1.0)
[2021-07-05 15:39] LABS: ICTOTEST (BILI CONFIRMATORY) Negative (Negative); URINE BILIRUBIN 2+ (Negative); URINE NITRITE-REFLEX POSITIVE (Negative)
[2021-07-05 15:51] LABS: HYALINE CASTS >10 Many /LPF (None Seen)
[2021-07-05 15:52] LABS: CRYSTALS None Seen /LPF (None Seen); MUCUS None Seen strn/LPF (None Seen); SQUAMOUS 0-3 Few /LPF (0-3); URINE RBC 3-10 Few /HPF (0-2); URINE WBC-REFLEX 6-15 Few /HPF (0-5); YEAST-REFLEX Present (None Seen)
[2021-07-05 15:53] LABS: BACTERIA-REFLEX 1-9 Few /HPF (None Seen)
--- NOTE | 2021-07-05 16:15 | NUR ---
CONTACT RT TO PULL BACK ET PER RADIOLOGY.
[2021-07-06] VITALS (38 sets, daily range): BP systolic 84–137; BP diastolic 46–75
--- NOTE | 2021-07-06 04:51 | NUR ---
ASSUMED CARE AT 1900H, ON VENT AT 75% AND TOLERATED. ON FENTANYL AND PROPOFOL DRIP, TITRATED. RESPONDED TO PAIN. HYPOTENSION NOTED, ALEXIS DRIP STARTED. OG CONNECTED TO LIS. NO FEVER AND BLEEDING NOTED. URINE OUTPUT DECREASING. CONTINUE MONITORING AND TOWARDS GOALS. PROPOFOL AT 20MICS AND FENTANYL AT 7MICS. ALEXIS AT .5MICS.
[2021-07-06 05:51] LABS: CALCIUM 6.8 mg/dL (8.5-10.1); CREATININE 2.9 mg/dL (0.6-1.3); POTASSIUM 4.3 mmol/L (3.5-5.1)
[2021-07-06 07:27] LABS: ANISOCYTOSIS 1+; HYPOCHROMASIA 1+
[2021-07-06 07:54] LABS: ABSOLUTE EOSINOPHILS 0.2 thou/uL (0.0-0.7); ABSOLUTE LYMPHOCYTES 2.5 thou/uL (0.8-5.3); ABSOLUTE MONOCYTES 0.5 thou/uL (0.0-1.2); ABSOLUTE NEUTROPHILS 19.7 thou/uL (1.6-8.1); HEMATOCRIT 26.6 % (37.0-47.0); MCH 34.1 pg (26.0-34.0); MCHC 33.9 g/dL (28.0-37.0); MCV 100.6 fL (80.0-100.0); MPV 8.2 fl. (7.2-11.1); PLATELET COUNT* 83 thou/uL (150-400); RBC 2.64 mil/uL (4.20-5.00); RDW-CV 17.1 % (10.5-14.5); WBC 22.9 thou/uL (4.0-11.0)
[2021-07-06 07:55] LABS: PLATELET ESTIMATE DECREASED
--- NOTE | 2021-07-06 10:32 | 2DMMODE ---
[place] [address] 2 D/M-MODE ECHOCARDIOGRAM Name: POONAM TAN Room: [address] ADM IN [facility].#: [id number] Admission: 07/03/21 Attend Phys: Richard Garcia Discharge: Date of : 54 Date of Service: 07/06/21 1032 Report #: [id number] THIS REPORT FOR: cc: FAM - No family physician/PCP FAM - No family physician/PCP Topher Chiang MD [facility] ~ APPROVED REPORT Study performed: 07/05/2021 16:16:50 EXAM: Limited 2D Echocardiogram Patient Location: In-Patient Room #: 002 Status: routine BSA: 2.08 HR: 94 bpm BP: 122/62 mmHg Rhythm: NSR Other Information Study Quality: Good Indications Congestive Heart Failure Sepsis Volumes Left Atrial Volume (Systole) LA ESV Index: 21.80 mL/m2 Tricuspid Valve RAP Estimate: 5.00 mmHg TR Peak Gr.: 26.40 mmHg RVSP: 31.00 mmHg PA Pressure: 31.00 mmHg Left Ventricle The left ventricle is normal size. There is left ventricular systolic dyssynergy consistent with underlying bundle branch block. There is normal left ventricular wall thickness. The left ventricular systolic function is normal. LVEF is 55-60%. Right Ventricle Right ventricle is dilated. The right ventricular [place] [address] 2 D/M-MODE ECHOCARDIOGRAM Name: POONAM TAN Room: [address] ADM IN M.R.#: [id number] Admission: 07/03/21 Attend Phys: Richard Garcia Discharge: Date of : 54 Date of Service: 07/06/21 1032 Report #: [id number] Atria The left atrium size is normal. Right atrium is dilated. Aortic Valve Moderate aortic valve sclerosis. Mitral Valve The mitral valve is normal in structure. Tricuspid Valve The tricuspid valve is normal in structure. Mild tricuspid regurgitation. The RVSP is 30-35 mmHg. Pulmonic Valve The pulmonary valve is normal in structure. There is no pulmonic valve vegetations. Great Vessels The aortic root is normal in size. IVC is normal in size and collapses >50% with inspiration. Pericardium There is no pericardial effusion. <Conclusion> The left ventricle is normal size. There is normal left ventricular wall thickness. The left ventricular systolic function is normal. LVEF is 55-60%. There is left ventricular systolic dyssynergy consistent with underlying bundle branch block. Moderate aortic valve sclerosis. Right ventricle is dilated. Right atrium is dilated. Mild tricuspid regurgitation. The RVSP is 30-35 mmHg. There is no pericardial effusion. <ELECTRONICALLY SIGNED> By: Topher Chiang MD, FACC 07/06/21 103 31 103 Topher Chiang MD, FAC /INF
[2021-07-06 11:23] LABS: PCO2 VENOUS 47.3 mmHg (41.0-51.0); PO2 VENOUS 104.4 mmHg (35.0-45.0)
--- NOTE | 2021-07-06 11:54 | CON ---
[address] [address] CONSULTATION Name: POONAM TAN Room: [address] IN M.R.#: [id number] Admission: 07/03/21 Attend Phys: Avelina Zhu Discharge: Date of : 54 Report #: [id number] THIS REPORT FOR: cc: FAM - No family physician/PCP FAM - No family physician/PCP Jorge Carr MD ~ DATE OF CONSULTATION: 07/05/2021 REQUESTING PHYSICIAN: Richard Garcia DO REASON FOR CONSULTATION: Acute kidney injury. HISTORY OF PRESENT ILLNESS: The patient is a 70-year-old female who was admitted to the hospital on 07/04/2021 with complaints of shortness of breath. The patient apparently had progressively worse over the last couple of days, she became confused. She was brought to the hospital, was diagnosed with bilateral pneumonia, ARDS, acute kidney injury and I was consulted. PAST MEDICAL HISTORY: 1. COPD with recurrent COPD exacerbation. 2. Diabetes mellitus type 2. The patient's creatinine on admission was 2.4, is 2.6 now. Creatinine was normal in May of this year. SOCIAL HISTORY: No tobacco, no alcohol abuse. FAMILY HISTORY: No history of renal disease. MEDICATIONS: Reviewed. REVIEW OF SYSTEMS: Unobtainable due to become very altered and hypoxic. PHYSICAL EXAMINATION: GENERAL: Being transferred to intensive care unit now. VITAL SIGNS: Blood pressure 134/67, heart rate is 118, temperature is 39 degrees Celsius, respiratory rate 28. HEENT: Pupils round. NECK: Elevated JVD. LUNGS: With coarse breath sounds. CARDIOVASCULAR: Tachycardia. ABDOMEN: Soft. LABORATORY DATA: Serum sodium 138, potassium 4.6, chloride 100, carbon dioxide 28, BUN 46, creatinine 2[place] [address] CONSULTATION Name: POONAM TAN Room: [address]#: [id number] Admission: 07/03/21 Attend Phys: Avelina Zhu Discharge: Date of : 54 Report #: [id number] ASSESSMENT: 1. Bilateral pneumonia, sepsis. 2. Acute kidney injury due to sepsis. 3. Respiratory distress. 4. Chronic obstructive pulmonary disease. 5. Diabetes mellitus type 2. PLAN: The patient is being transferred to ICU. Most likely will need to be intubated. Continue antibiotics and fluids. Follow labs. She might require dialysis. <ELECTRONICALLY SIGNED> By: Jorge Carr MD 07/06/21 1154 1322 1440Jorge Carr MD /nt
[2021-07-06 11:56] LABS: ABSOLUTE LYMPHOCYTES 1.6 thou/uL (0.8-5.3); ABSOLUTE MONOCYTES 0.4 thou/uL (0.0-1.2); ABSOLUTE NEUTROPHILS 26.3 thou/uL (1.6-8.1); BASOPHILS 0.1 %; EOSINOPHILS 0.1 %; HEMATOCRIT 29.5 % (37.0-47.0); HEMOGLOBIN 9.9 gm/dL (12.0-15.0); LYMPHOCYTES 5.6 %; MCH 33.6 pg (26.0-34.0); MCHC 33.4 g/dL (28.0-37.0); MCV 100.4 fL (80.0-100.0); MONOCYTES 1.4 %; MPV 8.3 fl. (7.2-11.1); NUCLEATED RBCS 0 /100WBC; PLATELET COUNT* 104 thou/uL (150-400); POLYS 92.8 %; RBC 2.93 mil/uL (4.20-5.00); RDW-CV 16.6 % (10.5-14.5); WBC 28.4 thou/uL (4.0-11.0)
[2021-07-06 12:13] LABS: APTT 52.4 Seconds (25.0-31.3); INR 3.5
[2021-07-06 12:14] LABS: CALCIUM 6.6 mg/dL (8.5-10.1); MAGNESIUM 1.9 mg/dL (1.8-2.4); POTASSIUM 4.3 mmol/L (3.5-5.1); TOTAL PROTEIN 4.9 g/dL (6.4-8.2)
--- NOTE | 2021-07-06 14:24 | NUR ---
Patient is admitted for respiratory failure and COPD exacerbation. Pt is currently intubated. Pt had a visitor - but visitor identified himself as the son in law. Called spouse Allen at home and he provided information. Pt lives with spouse and has assistance from son who is an RN at [employer]. Spouse and Son were providing 24 hour care as patient's illness progressed and she became progressively weaker. Spouse reports patient didn't use oxygen in the home. Pt was vaccinated for Covid in December and January of 2021. Spouse denies history of home health or residential facility placement. Anticipate pt will need [facility] upon discharge. CM to continue to follow for discharge needs.
[2021-07-06 22:06] LABS: MYCOPLASMA PNEUMONIA IgG 1081 U/mL (0-99); MYCOPLASMA PNEUMONIA IgM <770 U/mL (0-769)
[2021-07-07] VITALS (89 sets, daily range): BP systolic 88–137; BP diastolic 40–73
[2021-07-07 04:37] LABS: ABSOLUTE MONOCYTES 0.4 thou/uL (0.0-1.2); ABSOLUTE NEUTROPHILS 16.7 thou/uL (1.6-8.1); BASOPHILS 0.1 %; HEMATOCRIT 24.5 % (37.0-47.0); LYMPHOCYTES 5.7 %; MCH 33.6 pg (26.0-34.0); MCHC 32.7 g/dL (28.0-37.0); MCV 102.9 fL (80.0-100.0); MONOCYTES 2.2 %; MPV 9.3 fl. (7.2-11.1); NUCLEATED RBCS 0 /100WBC; PLATELET COUNT* 63 thou/uL (150-400); RBC 2.38 mil/uL (4.20-5.00); RDW-CV 16.7 % (10.5-14.5); WBC 18.1 thou/uL (4.0-11.0)
[2021-07-07 06:02] LABS: APTT 58.7 Seconds (25.0-31.3); INR 2.6; PROTIME 26.1 Seconds (9.20-11.50)
[2021-07-07 06:03] LABS: ALBUMIN 2.5 g/dL (3.4-5.0); CALCIUM 6.5 mg/dL (8.5-10.1); POTASSIUM 4.2 mmol/L (3.5-5.1); TOTAL BILIRUBIN 2.6 mg/dL (<0.1-1.0); TOTAL PROTEIN 5.1 g/dL (6.4-8.2)
[2021-07-07 11:25] LABS: BE -3.1 mmol/L (-2 to +3); PCO2 VENOUS 45.3 mmHg (41.0-51.0); PO2 VENOUS 70.8 mmHg (35.0-45.0)
--- NOTE | 2021-07-07 14:01 | NUR ---
ICU Rounds: Patient remains on vent (FIO2 50% and peep 10). Continued sedation. Temp dialysis cath placed today (07/07) with plans to start dialysis today per renal. CM to continue to follow
[2021-07-07 20:25] LABS: CALCIUM 6.4 mg/dL (8.5-10.1); CREATININE 2.6 mg/dL (0.6-1.3)
[2021-07-07 20:35] LABS: PROTIME 19.7 Seconds (9.20-11.50)
[2021-07-07 20:40] LABS: ABSOLUTE LYMPHOCYTES 0.8 thou/uL (0.8-5.3); ABSOLUTE MONOCYTES 0.3 thou/uL (0.0-1.2); ABSOLUTE NEUTROPHILS 20.2 thou/uL (1.6-8.1); BASOPHILS 0.2 %; HEMATOCRIT 23.2 % (37.0-47.0); HEMOGLOBIN 7.8 gm/dL (12.0-15.0); LYMPHOCYTES 3.6 %; MCHC 33.8 g/dL (28.0-37.0); MCV 100.8 fL (80.0-100.0); MONOCYTES 1.5 %; MPV 8.9 fl. (7.2-11.1); NUCLEATED RBCS 0 /100WBC; POLYS 94.7 %; RDW-CV 16.6 % (10.5-14.5); WBC 21.3 thou/uL (4.0-11.0)
[2021-07-07 20:47] LABS: PLATELET COUNT* 43 thou/uL (150-400)
[2021-07-08] VITALS (80 sets, daily range): BP systolic 69–167; BP diastolic 40–93
[2021-07-08 06:44] LABS: HEMOGLOBIN 7.5 gm/dL (12.0-15.0); NUCLEATED RBCS 0 /100WBC
[2021-07-08 06:46] LABS: ABSOLUTE LYMPHOCYTES 0.7 thou/uL (0.8-5.3); ABSOLUTE MONOCYTES 0.4 thou/uL (0.0-1.2); ABSOLUTE NEUTROPHILS 19.6 thou/uL (1.6-8.1); HEMATOCRIT 22.7 % (37.0-47.0); LYMPHOCYTES 3.2 %; MCH 33.5 pg (26.0-34.0); MCHC 33.2 g/dL (28.0-37.0); MCV 100.8 fL (80.0-100.0); MONOCYTES 1.8 %; MPV 8.1 fl. (7.2-11.1); RBC 2.25 mil/uL (4.20-5.00); RDW-CV 16.7 % (10.5-14.5); WBC 20.6 thou/uL (4.0-11.0)
[2021-07-08 06:59] LABS: PLATELET COUNT* 34 thou/uL (150-400)
[2021-07-08 07:03] LABS: ALBUMIN 2.3 g/dL (3.4-5.0); CALCIUM 6.7 mg/dL (8.5-10.1); CREATININE 2.7 mg/dL (0.6-1.3); MAGNESIUM 1.9 mg/dL (1.8-2.4); POTASSIUM 4.4 mmol/L (3.5-5.1); TOTAL BILIRUBIN 2.5 mg/dL (<0.1-1.0); TOTAL PROTEIN 5.1 g/dL (6.4-8.2)
[2021-07-08 07:05] LABS: APTT 45.4 Seconds (25.0-31.3); INR 1.8; PHOSPHORUS* 4.5 mg/dL (2.5-4.9); PROTIME 18.4 Seconds (9.20-11.50)
[2021-07-08 07:24] LABS: PREALBUMIN 10.1 mg/dL (18.0-35.7)
[2021-07-08 07:32] LABS: SGOT 98 U/L (15-37); SGPT 39 U/L (30-65)
[2021-07-08 12:07] LABS: BE -0.6 mmol/L (-2 to +3); PCO2 VENOUS 41.3 mmHg (41.0-51.0); PO2 VENOUS 97.9 mmHg (35.0-45.0)
[2021-07-08 19:41] LABS: HEMOGLOBIN 8.3 gm/dL (12.0-15.0); MCH 33.1 pg (26.0-34.0); MCHC 33.3 g/dL (28.0-37.0); MCV 99.6 fL (80.0-100.0); RBC 2.51 mil/uL (4.20-5.00); RDW-CV 16.1 % (10.5-14.5); WBC 23.2 thou/uL (4.0-11.0)
[2021-07-08 20:30] LABS: APTT 44.2 Seconds (25.0-31.3); INR 1.7; PROTIME 17.3 Seconds (9.20-11.50)
[2021-07-08 22:06] LABS: HEPATITIS B SURFACE AG Negative (Negative)
[2021-07-09] VITALS (165 sets, daily range): BP systolic 77–140; BP diastolic 40–77
[2021-07-09 03:13] LABS: ABSOLUTE LYMPHOCYTES 0.5 thou/uL (0.8-5.3); ABSOLUTE MONOCYTES 0.4 thou/uL (0.0-1.2); ABSOLUTE NEUTROPHILS 18.6 thou/uL (1.6-8.1); BASOPHILS 0.1 %; HEMATOCRIT 22.9 % (37.0-47.0); HEMOGLOBIN 7.6 gm/dL (12.0-15.0); LYMPHOCYTES 2.6 %; MONOCYTES 1.9 %; MPV 7.5 fl. (7.2-11.1); NUCLEATED RBCS 0 /100WBC; POLYS 95.4 %; RBC 2.29 mil/uL (4.20-5.00); RDW-CV 16.8 % (10.5-14.5); WBC 19.5 thou/uL (4.0-11.0)
[2021-07-09 03:17] LABS: PLATELET COUNT* 19 thou/uL (150-400)
[2021-07-09 03:41] LABS: PREALBUMIN 9.5 mg/dL (18.0-35.7)
[2021-07-09 03:42] LABS: ALBUMIN 2.2 g/dL (3.4-5.0); CREATININE 2.3 mg/dL (0.6-1.3); MAGNESIUM 1.8 mg/dL (1.8-2.4); PHOSPHORUS* 4.1 mg/dL (2.5-4.9); POTASSIUM 4.1 mmol/L (3.5-5.1); TOTAL BILIRUBIN 2.6 mg/dL (<0.1-1.0); TOTAL PROTEIN 4.9 g/dL (6.4-8.2)
[2021-07-09 11:32] LABS: BE 2.4 mmol/L (-2 to +3); PO2 VENOUS 92.8 mmHg (35.0-45.0)
[2021-07-09 15:25] LABS: APTT 50.4 Seconds (25.0-31.3); INR 1.8; PROTIME 17.8 Seconds (9.20-11.50)
[2021-07-09 20:24] LABS: INR 1.7; PROTIME 16.9 Seconds (9.20-11.50)
[2021-07-10] VITALS (72 sets, daily range): BP systolic 66–132; BP diastolic 35–72
[2021-07-10 02:06] LABS: HEPATITIS B SURFACE AG Negative (Negative)
[2021-07-10 05:00] LABS: HEMATOCRIT 20.3 % (37.0-47.0); MCV 99.8 fL (80.0-100.0); MPV 9.4 fl. (7.2-11.1); NUCLEATED RBCS 0 /100WBC; RBC 2.03 mil/uL (4.20-5.00); RDW-CV 16.5 % (10.5-14.5); WBC 16.8 thou/uL (4.0-11.0)
[2021-07-10 05:16] LABS: ALBUMIN 2.7 g/dL (3.4-5.0); CALCIUM 7.9 mg/dL (8.5-10.1); CREATININE 2.1 mg/dL (0.6-1.3); PHOSPHORUS* 4.4 mg/dL (2.5-4.9); POTASSIUM 4.2 mmol/L (3.5-5.1)
[2021-07-10 05:20] LABS: ALBUMIN 2.7 g/dL (3.4-5.0); CALCIUM 7.8 mg/dL (8.5-10.1); CREATININE 2.1 mg/dL (0.6-1.3); MAGNESIUM 1.9 mg/dL (1.8-2.4); POTASSIUM 4.2 mmol/L (3.5-5.1); TOTAL BILIRUBIN 2.9 mg/dL (<0.1-1.0); TOTAL PROTEIN 5.1 g/dL (6.4-8.2)
[2021-07-10 05:31] LABS: APTT 42.3 Seconds (25.0-31.3); INR 1.6
[2021-07-10 05:44] LABS: HEMOGLOBIN 6.7 gm/dL (12.0-15.0); PLATELET COUNT* 48 thou/uL (150-400)
[2021-07-10 06:55] LABS: ABSOLUTE LYMPHOCYTES 1.2 thou/uL (0.8-5.3); ABSOLUTE MONOCYTES 0.3 thou/uL (0.0-1.2); ABSOLUTE NEUTROPHILS 15.3 thou/uL (1.6-8.1)
[2021-07-10 06:56] LABS: HYPOCHROMASIA 1+; PLATELET ESTIMATE ADEQUATE
[2021-07-11] VITALS (89 sets, daily range): BP systolic 78–156; BP diastolic 40–81
--- NOTE | 2021-07-11 04:01 | NUR ---
ASSUMED CARE AT 1900H, ON VENT AT 45% AND TOLERATED. NO CONTINUES SEDATION. WITHDREW TO PAIN. ON ALEXIS DRIP AND TITRATED. DIALISIS DONE WITH OUT OF 2.5L. 1UNIT PRBC GIVEN WHILE ON HD. NO FEVER AND BLEEDING NOTED. VERSED IV PUSH GIVEN FOR SEDATION. CONTINUE MONITORING AND TOWARDS GOALS. ALEXIS AT .1MICS.
[2021-07-11 05:08] LABS: MCV 95.5 fL (80.0-100.0)
[2021-07-11 05:09] LABS: ABSOLUTE LYMPHOCYTES 0.6 thou/uL (0.8-5.3); ABSOLUTE MONOCYTES 1.1 thou/uL (0.0-1.2); ABSOLUTE NEUTROPHILS 17.2 thou/uL (1.6-8.1); HEMATOCRIT 25.8 % (37.0-47.0); LYMPHOCYTES 3.1 %; MCH 32.4 pg (26.0-34.0); MCHC 33.9 g/dL (28.0-37.0); MONOCYTES 5.7 %; MPV 8.6 fl. (7.2-11.1); NUCLEATED RBCS 0 /100WBC; POLYS 91.2 %; RDW-CV 18.1 % (10.5-14.5); WBC 18.8 thou/uL (4.0-11.0)
[2021-07-11 05:13] LABS: HEMOGLOBIN 8.7 gm/dL (12.0-15.0)
[2021-07-11 05:19] LABS: PLATELET COUNT* 29 thou/uL (150-400)
[2021-07-11 05:20] LABS: CALCIUM 8.1 mg/dL (8.5-10.1); CREATININE 1.7 mg/dL (0.6-1.3); MAGNESIUM 1.9 mg/dL (1.8-2.4); POTASSIUM 3.9 mmol/L (3.5-5.1)
[2021-07-11 05:21] LABS: INR 1.5; PREALBUMIN 10.7 mg/dL (18.0-35.7); PROTIME 15.6 Seconds (9.20-11.50)
[2021-07-11 05:24] LABS: ALBUMIN 2.6 g/dL (3.4-5.0); CREATININE 1.7 mg/dL (0.6-1.3); POTASSIUM 3.9 mmol/L (3.5-5.1); TOTAL BILIRUBIN 4.6 mg/dL (<0.1-1.0)
[2021-07-12] VITALS (69 sets, daily range): BP systolic 79–151; BP diastolic 42–602
[2021-07-12 04:54] LABS: BASOPHILS 0.1 %; HEMATOCRIT 26.7 % (37.0-47.0); WBC 25.7 thou/uL (4.0-11.0)
[2021-07-12 04:56] LABS: ABSOLUTE LYMPHOCYTES 0.6 thou/uL (0.8-5.3); ABSOLUTE MONOCYTES 1.2 thou/uL (0.0-1.2); ABSOLUTE NEUTROPHILS 23.9 thou/uL (1.6-8.1); LYMPHOCYTES 2.2 %; MCH 32.3 pg (26.0-34.0); MCHC 33.8 g/dL (28.0-37.0); MCV 95.5 fL (80.0-100.0); MONOCYTES 4.8 %; MPV 9.5 fl. (7.2-11.1); NUCLEATED RBCS 0 /100WBC; PLATELET COUNT* 67 thou/uL (150-400); POLYS 92.9 %; RDW-CV 18.2 % (10.5-14.5)
[2021-07-12 05:02] LABS: APTT 33.3 Seconds (25.0-31.3); INR 1.5; PROTIME 14.9 Seconds (9.20-11.50)
[2021-07-12 05:18] LABS: ALBUMIN 2.6 g/dL (3.4-5.0); CALCIUM 8.3 mg/dL (8.5-10.1); CREATININE 2.1 mg/dL (0.6-1.3); MAGNESIUM 1.9 mg/dL (1.8-2.4); PHOSPHORUS* 4.4 mg/dL (2.5-4.9); POTASSIUM 4.3 mmol/L (3.5-5.1); TOTAL BILIRUBIN 4.8 mg/dL (<0.1-1.0); TOTAL PROTEIN 5.2 g/dL (6.4-8.2)
[2021-07-12 12:51] LABS: BE 2.5 mmol/L (-2 to +3); PO2 VENOUS 65.8 mmHg (35.0-45.0)
[2021-07-12 15:14] LABS: DIRECT BILIRUBIN 2.8 mg/dL (<0.1-0.3)
[2021-07-13] VITALS (76 sets, daily range): BP systolic 87–163; BP diastolic 51–87
[2021-07-13 05:01] LABS: HEMATOCRIT 26.6 % (37.0-47.0); HEMOGLOBIN 8.9 gm/dL (12.0-15.0); MCH 32.3 pg (26.0-34.0); MCHC 33.4 g/dL (28.0-37.0); MCV 96.6 fL (80.0-100.0); MPV 10.3 fl. (7.2-11.1); NUCLEATED RBCS 0 /100WBC; RBC 2.75 mil/uL (4.20-5.00); RDW-CV 18.4 % (10.5-14.5)
[2021-07-13 05:06] LABS: ALBUMIN 2.3 g/dL (3.4-5.0); CALCIUM 8.2 mg/dL (8.5-10.1); CREATININE 1.8 mg/dL (0.6-1.3); MAGNESIUM 1.8 mg/dL (1.8-2.4); TOTAL BILIRUBIN 4.5 mg/dL (<0.1-1.0); TOTAL PROTEIN 4.8 g/dL (6.4-8.2)
[2021-07-13 05:11] LABS: APTT 36.2 Seconds (25.0-31.3); INR 1.5; PROTIME 15.4 Seconds (9.20-11.50)
[2021-07-13 05:13] LABS: PLATELET COUNT* 43 thou/uL (150-400)
[2021-07-13 07:20] LABS: ABSOLUTE LYMPHOCYTES 0.2 thou/uL (0.8-5.3); ABSOLUTE NEUTROPHILS 17.9 thou/uL (1.6-8.1)
[2021-07-13 07:21] LABS: ANISOCYTOSIS 1+; HYPOCHROMASIA 1+; PLATELET ESTIMATE DECREASED
[2021-07-13 12:41] LABS: BE 2.3 mmol/L (-2 to +3); PCO2 VENOUS 38.2 mmHg (41.0-51.0); PO2 VENOUS 122.7 mmHg (35.0-45.0)
--- NOTE | 2021-07-13 14:37 | NUR ---
Called son Sven Valadez at: to discuss dicharge planning. At this time son would like to see how patient progresses but plan will be SNF vs home with and son's assistance (son is a RN). If home health is needed - would prefer [facility]. If SNF is needed - he would prefer patient went elsewhere other than [facility] but would have to think about where. Son is not interested in patient discharging to [facility]. Son reports they have a hospital bed and commode at home. Son reports they have been renting a sit to stand but had it picked up while patient was in the hospital as it costs $15 a day, but reports they can rent it again when they know patient is close to discharging. CM to continue to follow for dicharge needs.
[2021-07-14] VITALS (104 sets, daily range): BP systolic 74–161; BP diastolic 39–85
[2021-07-14 05:55] LABS: ABSOLUTE LYMPHOCYTES 0.7 thou/uL (0.8-5.3); ABSOLUTE MONOCYTES 0.9 thou/uL (0.0-1.2); ABSOLUTE NEUTROPHILS 15.6 thou/uL (1.6-8.1); BASOPHILS 0.1 %; HEMATOCRIT 25.7 % (37.0-47.0); HEMOGLOBIN 8.6 gm/dL (12.0-15.0); LYMPHOCYTES 4.2 %; MCH 32.7 pg (26.0-34.0); MCHC 33.6 g/dL (28.0-37.0); MCV 97.3 fL (80.0-100.0); MONOCYTES 5.5 %; MPV 9.6 fl. (7.2-11.1); NUCLEATED RBCS 0 /100WBC; POLYS 90.2 %; RBC 2.64 mil/uL (4.20-5.00); RDW-CV 18.3 % (10.5-14.5); WBC 17.3 thou/uL (4.0-11.0)
[2021-07-14 06:15] LABS: PLATELET COUNT* 25 thou/uL (150-400)
[2021-07-14 06:18] LABS: ALBUMIN 2.5 g/dL (3.4-5.0); CALCIUM 8.1 mg/dL (8.5-10.1); CREATININE 2.1 mg/dL (0.6-1.3); MAGNESIUM 1.8 mg/dL (1.8-2.4); POTASSIUM 4.2 mmol/L (3.5-5.1); TOTAL BILIRUBIN 4.2 mg/dL (<0.1-1.0); TOTAL PROTEIN 4.9 g/dL (6.4-8.2)
--- NOTE | 2021-07-14 14:30 | NUR ---
ASSUMED CARE OF PT. PLEASE SEE DOCUMENTED ASSESSMENT. VENT W/FIO2 AT 50%, PT RESTLESS, WILL CONTINUOUSLY MOVE HEAD FROM SIDE TO SIDE. LABORED BREATHING NOTED. PRN FENTANYL ADMINISTERED W/MINIMAL EFFECT. RESPONDS TO PAIN. REMAINS ON PRECEDEX AND ALEXIS GTT.
--- NOTE | 2021-07-14 16:45 | NUR ---
ABBY RODNEY, SPOKE W/PT'S SON, FIORDALIZA AND UPDATED HIM W/PLAN OF CARE. PER PT'S SON, FIORDALIZA, HE WISHES FOR HIS MOTHER TO BE A DNR. DR. PHILIPPE UPDATED. PT IS NOW DNR STATUS.
--- NOTE | 2021-07-14 17:07 | NUR ---
I ASSUMED CARE OF THE PATIENT AT 0800. SHE IS INTUBATED AND SEDATED. PATIENT NEEDS ARE MET DURING HOURLY ROUNDING. BED IS IN THE LOW LOCKED POSITION WITH TURNS ON AT 30% EVERY 10 MINUTES. RESIDUAL IS CHECKED WITH ORAL CARE EVERY 2 HOURS, TUBE FEED IS CONTINUOUS. BLOOD GLUCOSE IS MONITORED AND INSULIN IS INITIATED. BED IS IN THE LOW LOCKED POSITION. DIALYSIS WAS COMPLETED AT 0950 WITH 1469 REMOVED, BUT PATIENT DIDN'T TOLERATE WELL. VENT SETTINGS ARE CHARTED AND REMAIN THE SAME. DIALYSIS IS REQUESTING A PERMANENT LINE AND ALBUMIN WAS GIVEN DURING TREATMENT TO TRY AND KEEP BLOOD PRESSURE WITHIN NORMAL LIMITS. VICKERS IS IN PLACE, BUT OUTPUT IS MINIMAL. ALEXIS AND PRECEDEX ARE RUNNING CONTINUOUSLY. SON CAME TO THE BEDSIDE AND UPDATE WAS GIVEN AND CODE STATUS WAS DISCUSSED. HE WILL DISCUSS WITH DAD AND BROTHER. WILL CONTINUE TO MONITOR. REPORT WAS GIVEN TO HARMONY.
--- NOTE | 2021-07-14 18:26 | NUR ---
OUTCOME SUMMARY: SOME PROGRESSION TOWARDS GOALS. PT IS NOW DNR STATUS PER HER SON'S WISHES. REMAINS ON PRECEDEX AND ALEXIS GTTS. REMAINS RESTLESS W/LABORED BREATHING DESPITE MULTIPLE PRN FENTANYL DOSES. UPDATED DR. PHILIPPE AND DR. JACKSON RE: PT STATUS. NEW ORDERS RCV'D FROM DR. JACKSON FOR PRN VERSED IF NEEDED. NURSING IS TO TRY PRN FENTANYL FIRST, THEN ADVANCE TO VERSED IF FENTANYL IS NOT EFFECTIVE. OVERALL PROGNOSIS: GUARDED/POOR.
[2021-07-14 20:39] LABS: ABSOLUTE LYMPHOCYTES 0.7 thou/uL (0.8-5.3); ABSOLUTE NEUTROPHILS 16.6 thou/uL (1.6-8.1); LYMPHOCYTES 3.7 %; MONOCYTES 5.3 %; NUCLEATED RBCS 0 /100WBC
[2021-07-14 20:41] LABS: BASOPHILS 0.1 %; HEMATOCRIT 24.4 % (37.0-47.0); HEMOGLOBIN 8.2 gm/dL (12.0-15.0); MCH 32.5 pg (26.0-34.0); MCHC 33.6 g/dL (28.0-37.0); MCV 96.9 fL (80.0-100.0); MPV 9.2 fl. (7.2-11.1); POLYS 90.9 %; RBC 2.52 mil/uL (4.20-5.00); RDW-CV 17.8 % (10.5-14.5); WBC 18.3 thou/uL (4.0-11.0)
[2021-07-14 20:50] LABS: PLATELET COUNT* 17 thou/uL (150-400)
[2021-07-14 20:55] LABS: APTT 37.4 Seconds (25.0-31.3); INR 1.5; PROTIME 15.6 Seconds (9.20-11.50)
[2021-07-15] VITALS (74 sets, daily range): BP systolic 71–193; BP diastolic 41–88
--- NOTE | 2021-07-15 04:20 | NUR ---
ASSUMED CARE AT 1910H, ON VENT AT 50% AND TOLERATED. ON PRECEDEX AT MAX DOSE. PRN SEDATION GIVEN. ON ALEXIS DRIP, TITRATED. WITHDREW TO PAIN. CRITICAL PLATELET INFORMED HEMATOLODGY AND ORDER CARRIED OUT. NO BLEEDING NOTED AND NO FEVER NOTED. CONTINUE MONITORING AND TOWARDS GOALS. ALEXIS OFF ARROUND 1AM.
[2021-07-15 06:41] LABS: HEMATOCRIT 25.3 % (37.0-47.0); HEMOGLOBIN 8.5 gm/dL (12.0-15.0); MCH 32.3 pg (26.0-34.0); MCHC 33.5 g/dL (28.0-37.0); MCV 96.4 fL (80.0-100.0); MPV 9.7 fl. (7.2-11.1); RBC 2.63 mil/uL (4.20-5.00); RDW-CV 18.2 % (10.5-14.5); WBC 16.9 thou/uL (4.0-11.0)
[2021-07-15 06:55] LABS: ALBUMIN 2.4 g/dL (3.4-5.0); PHOSPHORUS* 4.3 mg/dL (2.5-4.9); POTASSIUM 3.8 mmol/L (3.5-5.1)
--- NOTE | 2021-07-15 16:42 | NUR ---
Pt remains in the ICU on a vent. They attempted a weaning trial but found pt was too restless to consider for extubation. Pt continues on dialysis and a Precedex drip. Pt is currently being tested for C-Diff as she is having liquid stools. Discharge plan will be SNF vs home with spouse, HH, and family providing 24 hour care. Son is a RN and was providing alot of care to patient before she admitted to the hospital. They have a hospital bed and commode. Notes indicate if patient does not significantly improve soon - they may have to consider a Trache and Peg tube. CM following for discharge planning.
[2021-07-16] VITALS (10 sets, daily range): BP systolic 103–134; BP diastolic 55–63
[2021-07-16 09:55] LABS: HEMATOCRIT 25.8 % (37.0-47.0); HEMOGLOBIN 8.5 gm/dL (12.0-15.0); MCH 32.2 pg (26.0-34.0); MCHC 32.9 g/dL (28.0-37.0); MCV 97.7 fL (80.0-100.0); RBC 2.64 mil/uL (4.20-5.00); RDW-CV 17.8 % (10.5-14.5)
[2021-07-16 09:58] LABS: MPV 9.9 fl. (7.2-11.1)
[2021-07-16 10:01] LABS: CREATININE 1.8 mg/dL (0.6-1.3); POTASSIUM 3.9 mmol/L (3.5-5.1)
--- NOTE | 2021-07-16 13:12 | NUR ---
Pt remains in the ICU. Pt is still on a vent and receiving dialysis. Called son - Rory today at: to inquire about DPOA paperwork. He feels his mother completed an Advanced Directive at the hospital but this shutdown planner was unable to find a copy. Doctor had mentioned in team meeting today she would like to meet with family for goal setting. Due to minimal improvement - their is discussion of possible trache and feeding tube. Son reports he will discuss with his father and see if they have a copy at home as he feels his dad likely has a copy. Anticipate pt will likely need SNF vs HH vs Hospice. Son is stating he is not interested in patient going to [facility]. Family was providing 24 hour care prior to hospitalization. CM to continue to follow for discharge planning.
[2021-07-16 20:08] LABS: CALCIUM 8.2 mg/dL (8.5-10.1); CREATININE 1.6 mg/dL (0.6-1.3); MAGNESIUM 2.2 mg/dL (1.8-2.4); POTASSIUM 3.4 mmol/L (3.5-5.1)
[2021-07-17] VITALS (29 sets, daily range): BP systolic 55–144; BP diastolic 30–69
--- NOTE | 2021-07-17 11:56 | NUR ---
all consults notified of comfort care.
--- NOTE | 2021-07-17 16:32 | NUR ---
pt at 1350. MTN and medical underwriter called.
== END 2021-07-17 15:30 | DRG 870 ==
LOC: M.ERS 10:53 → M.ORTHSURG 12:10 → M.ICU 12:10 → M.TBA-ER 12:10 → M.2W 21:53 → M.ORTHSURG 07-04 18:53 → M.ICU 07-05 13:45
PROVIDERS: Family Medicine; Internal Medicine; Internal Medicine Critical Care Medicine; Internal Medicine Hematology & Oncology; Internal Medicine Nephrology; ADMIT Internal Medicine; ATTEND Internal Medicine
PROC: 5A09457 Assistance with Respiratory Ventilation, 24-96 Consecutive Hours, Continuous Positive Airway Pressure (ICD-10-PCS; principal; 2021-07-03)
PROC: 0BH17EZ Insertion of Endotracheal Airway into Trachea, Via Natural or Artificial Opening (ICD-10-PCS; 2021-07-05)
PROC: 5A1955Z Respiratory Ventilation, Greater than 96 Consecutive Hours (ICD-10-PCS; 2021-07-05)
PROC: 02H633Z Insertion of Infusion Device into Right Atrium, Percutaneous Approach (ICD-10-PCS; 2021-07-07)
PROC: 30233K1 Transfusion of Nonautologous Frozen Plasma into Peripheral Vein, Percutaneous Approach (ICD-10-PCS; 2021-07-07)
PROC: 30233M1 Transfusion of Nonautologous Plasma Cryoprecipitate into Peripheral Vein, Percutaneous Approach (ICD-10-PCS; 2021-07-08)
PROC: 30233N1 Transfusion of Nonautologous Red Blood Cells into Peripheral Vein, Percutaneous Approach (ICD-10-PCS; 2021-07-10)
PROC: 30233R1 Transfusion of Nonautologous Platelets into Peripheral Vein, Percutaneous Approach (ICD-10-PCS; 2021-07-11)
DX: A41.9 Sepsis, unspecified organism (principal); J15.6 Pneumonia due to other Gram-negative bacteria; R65.21 Severe sepsis with septic shock; J80 Acute respiratory distress syndrome; N17.0 Acute kidney failure with tubular necrosis; D65 Disseminated intravascular coagulation [defibrination syndrome]; J15.1 Pneumonia due to Pseudomonas; D68.9 Coagulation defect, unspecified; E46 Unspecified protein-calorie malnutrition; R18.8 Other ascites; Z20.822 Contact with and (suspected) exposure to COVID-19; E11.9 Type 2 diabetes mellitus without complications; F17.210 Nicotine dependence, cigarettes, uncomplicated; J43.9 Emphysema, unspecified; E78.00 Pure hypercholesterolemia, unspecified; F41.9 Anxiety disorder, unspecified; I10 Essential (primary) hypertension; F32.9 Major depressive disorder, single episode, unspecified; I95.9 Hypotension, unspecified; D64.9 Anemia, unspecified; M06.9 Rheumatoid arthritis, unspecified; E66.01 Morbid (severe) obesity due to excess calories; R58 Hemorrhage, not elsewhere classified; Z66 Do not resuscitate; Z88.1 Allergy status to other antibiotic agents; Z88.0 Allergy status to penicillin; Z88.2 Allergy status to sulfonamides; Z88.8 Allergy status to other drugs, medicaments and biological substances; Z82.49 Family history of ischemic heart disease and other diseases of the circulatory system; Z68.35 Body mass index [BMI] 35.0-35.9, adult; Z79.899 Other long term (current) drug therapy; Z51.5 Encounter for palliative care